=== PATIENT | female | born 1975 | race Caucasian/White ===

== ENCOUNTER 2017-02-03 08:44 | Emergency (ER) | payer OTHER ==
[2017-02-03 08:50] VITALS: BP 96/56; PULSE 79; RESP 18; TEMP 98.7; O2SAT 99
--- NOTE | 2017-02-03 09:39 | ED PDOC ---
HPI: Female Pain Time Seen by Provider: 02/03/17 09:06 Chief Complaint (Nursing): Back Pain History Per: Patient History/Exam Limitations: no limitations Onset/Duration Of Symptoms: Days (2) Current Symptoms Are (Timing): Still Present Severity: Moderate Pain Scale Rating Of: 4 Quality Of Discomfort: Dull, Burning Associated Symptoms: Chills, Back Pain. denies: Fever, Nausea, Vomiting, Diarrhea, Loss Of Appetite, Constipation, Urinary Symptoms Alleviating Factors: None Additional History Per: Patient Additional Complaint(s): Pt co burning with urination for 2 days. Reports suprapubic pain. Reports lower back pain. No fever or vomiting. Has hx of UTIs. Abnormal Vaginal Bleeding: No Past Medical History Reviewed: Historical Data, Nursing Documentation, Vital Signs Vital Signs: Last Vital Signs Temp 98.7 F 02/03/17 08:50 Pulse 79 02/03/17 08:50 Resp 18 02/03/17 08:50 BP 96/56 L 02/03/17 08:50 Pulse Ox 99 02/03/17 08:50 - Medical History PMH: Gastritis - Surgical History Surgical History: Appendectomy (w/ peritonitis), (2) - Family History Family History: States: Unknown Family Hx - Immunization History Hx Tetanus Toxoid Vaccination: No Hx Influenza Vaccination: No Hx Pneumococcal Vaccination: No - Home Medications Home Medications: Ambulatory Orders Medication Instructions Recorded Famotidine [Pepcid] 20 mg PO Q12 #20 tab 05/29/16 - Allergies Allergies/Adverse Reactions: Allergies Allergy/AdvReac Type Severity Reaction Status Date / Time No Known Allergies Allergy Verified 02/03/17 08:54 Review of Systems ROS Statement: Except As Marked, All Systems Reviewed And Found Negative Constitutional: Negative for: Fever Genitourinary Female: Positive for: Dysuria Musculoskeletal: Positive for: Back Pain Physical Exam - Reviewed Nursing Documentation Reviewed: Yes Vital Signs Reviewed: Yes - Physical Exam Appears: Positive for: Well, Non-toxic, No Acute Distress Head Exam: Positive for: ATRAUMATIC, NORMAL INSPECTION Skin: Positive for: Warm, Dry Cardiovascular/Chest: Positive for: Regular Rate, Rhythm Respiratory: Negative for: Respiratory Distress Gastrointestinal/Abdominal: Positive for: Soft. Negative for: Tenderness Back: Negative for: L CVA Tenderness, R CVA Tenderness Neurologic/Psych: Positive for: Alert, Oriented - Laboratory Results Urine POC: Negative Urine dip results: Positive for: Leukocyte Esterase, Nitrate. Negative for: Blood, Ketones - ECG O2 Sat by Pulse Oximetry: 99 Medical Decision Making Medical Decision Making: IMpression Dysuria Diff include UTI uncomplicated vs complicated Plan Urine dip pyridium PO motrin PO Urine cx Disposition - Clinical Impression Clinical Impression: UTI (urinary tract infection) - Patient ED Disposition Is Patient to be Admitted: No Doctor Will See Patient In The: Office Counseled Patient/Family Regarding: Studies Performed, Diagnosis, Need For Followup - Disposition Referrals: [facility] [Outside] Disposition: Routine/Home Disposition Time: 09:39 Condition: GOOD Additional Instructions: Take medications as instructed. Follow up with your PCP in 2-3 days. Instructions: Urinary Tract Infection in Women (ED) Print Language: FAROESE
== END 2017-02-03 10:10 | disposition home or self-care (01) ==
LOC: H.ER 08:44
DX: N39.0 Urinary tract infection, site not specified (principal)

== ENCOUNTER 2017-03-08 10:55 | Inpatient (IN) | payer MEDICAID, SELFPAY ==
[2017-03-08 11:10] VITALS: BMI 32.1
--- NOTE | 2017-03-08 11:50 | ED PDOC ---
HPI: SOB/CHF/COPD Time Seen by Provider: 03/08/17 11:23 Chief Complaint (Nursing): Shortness Of Breath Chief Complaint (Provider): shortness of breath History Per: Patient History/Exam Limitations: no limitations Onset/Duration Of Symptoms: Days (x 3) Additional Complaint(s): Shae Bronson is a 41 year old female, with no previous medical history, who presents to the ED with complaints of shortness of breath associated with cough , generalized weakness and left eye twitching onoging for 3 days. She denies any chest pain, fever or chills. PMD: Fermin Townsend MD Past Medical History Reviewed: Historical Data, Nursing Documentation, Vital Signs Vital Signs: Last Vital Signs Temp 98.7 F 03/09/17 15:40 Pulse 75 03/09/17 15:40 Resp 20 03/09/17 15:40 BP 90/54 L 03/09/17 15:40 Pulse Ox 98 03/09/17 15:40 - Medical History PMH: Gastritis - Surgical History Surgical History: Appendectomy (w/ peritonitis), (2) - Family History Family History: States: Unknown Family Hx - Immunization History Hx Tetanus Toxoid Vaccination: No Hx Influenza Vaccination: No Hx Pneumococcal Vaccination: No - Home Medications Home Medications: Ambulatory Orders Medication Instructions Recorded Omeprazole [Omeprazole] 40 mg PO DAILY 03/08/17 - Allergies Allergies/Adverse Reactions: Allergies Allergy/AdvReac Type Severity Reaction Status Date / Time No Known Allergies Allergy Verified 03/08/17 17:28 Review of Systems ROS Statement: Except As Marked, All Systems Reviewed And Found Negative Constitutional: Positive for: Weakness (generalized). Negative for: Fever, Chills Cardiovascular: Negative for: Chest Pain Respiratory: Positive for: Cough, Shortness of Breath Physical Exam - Reviewed Nursing Documentation Reviewed: Yes Vital Signs Reviewed: Yes - Physical Exam Appears: Positive for: Well, Non-toxic, No Acute Distress Head Exam: Positive for: ATRAUMATIC, NORMAL INSPECTION, NORMOCEPHALIC Skin: Positive for: Normal Color, Warm, DRY Eye Exam: Positive for: EOMI, Normal appearance, PERRL ENT: Positive for: Normal ENT Inspection Neck: Positive for: Normal, Painless ROM Cardiovascular/Chest: Positive for: Irregularly Irregular Respiratory: Positive for: CNT, Normal Breath Sounds Gastrointestinal/Abdominal: Positive for: Normal Exam, Bowel Sounds, Soft Back: Positive for: Normal Inspection Extremity: Positive for: Normal ROM Neurologic/Psych: Positive for: Alert, basic combatant swimmer II-XII (intact), Oriented. Negative for: Motor/Sensory Deficits, Facial Droop - Laboratory Results Result Diagrams: 03/09/17 07:00 03/09/17 07:00 - ECG Interpretation Of ECG: Atrial bigeminy. O2 Sat by Pulse Oximetry: 98 (RA) Pulse Ox Interpretation: Normal - Radiology X-Ray: Read By Radiologist X-Ray Interpretation: No Acute Disease - Physician Consult Information Time Consulting Physican Contacted: 15:10 Physician Contacted: [place] Newman Outcome Of Conversation: Recommends TSH, UDS, alcohol level, Mg 2 g, will evaluate patient. Medical Decision Making Medical Decision Making: Initial Impression: Generalized Weakness Initial Plan: * EKG * magnesium * troponin I * urine * labs * D-dimer * PTT * PT * CXR * urinalysis * reevaluation Scribe Attestation: Documented by Niurka Cardenas, acting as a scribe for Niurka Wu MD. Provider Scribe Attestation: All medical record entries made by the Scribe were at my direction and personally dictated by me. I have reviewed the chart and agree that the record accurately reflects my personal performance of the history, physical exam, medical decision making, and the department course for this patient. I have also personally directed, reviewed, and agree with the discharge instructions and disposition. Disposition - Clinical Impression Clinical Impression: Atrial bigeminy - Patient ED Disposition Is Patient to be Admitted: Yes - Disposition Disposition Time: 15:46 Condition: STABLE - Pt Status Changed To: Hospital Disposition Of: Inpatient - Admit Certification Admit to Inpatient:: After my assessment, the patient will require hospitalization for at least two midnights. This is because of the severity of symptoms shown, intensity of services needed, and/or the medical risk in this patient being treated as an outpatient. - POA Present On Arrival: None
[2017-03-08 12:16] LABS: RBC URINE 2 /hpf (0-3); URINE BILIRUBIN NEGATIVE (NEGATIVE); URINE BLOOD NEGATIVE (NEGATIVE); URINE COLOR YELLOW (YELLOW); URINE GLUCOSE (UA) NEG (Normal); URINE KETONE NEGATIVE (NEGATIVE); URINE LEUKOCYTE ESTERASE NEG Leu/uL (Negative); URINE PROTEIN NEGATIVE (NEGATIVE); URINE UROBILINOGEN 0.2-1.0 mg/dL (0.2-1.0)
[2017-03-08 12:19] LABS: BASO % 0.8 % (0.0-2.0); EOS # 0.1 K/uL (0.0-0.7); EOS % 2.2 % (0.0-4.0); HEMATOCRIT 33.8 % (34.0-47.0); LYMPH # 2.4 K/uL (1.0-4.3); MEAN CELL VOLUME 85.3 fl (81.0-99.0); MEAN CORPUSCULAR HEMOGLOBIN 28.9 pg (27.0-31.0); MEAN CORPUSCULAR HGB CONC 33.9 g/dL (33.0-37.0); MEAN PLATELET VOLUME 7.5 fl (7.2-11.7); MONO # 0.7 K/uL (0.0-0.8); MONO % 11.9 % (0.0-10.0); NEUT # 2.9 K/uL (1.8-7.0); NEUT % 47.1 % (50.0-75.0); NRBC % 0.1 % (0.0-0.0); RED CELL DISTRIBUTION WIDTH 14.5 % (11.5-14.5); WHITE BLOOD COUNT 6.2 K/uL (4.8-10.8)
[2017-03-08 12:24] LABS: ALB/GLOB RATIO 1.2 (1.0-2.1); ALKALINE PHOSPHATASE 77 U/L (38-126); ALT/SGPT 180 U/L (9-52); AST/SGOT 128 U/L (14-36); BILIRUBIN,TOTAL 0.5 mg/dl (0.2-1.3); BLOOD UREA NITROGEN 11 mg/dl (7-17); CALCIUM 9.2 mg/dL (8.4-10.2); CARBON DIOXIDE 26 mmol/L (22-30); CHLORIDE 106 mmol/L (98-107); GFR AFRICAN-AMERICAN > 60; GLUCOSE,RANDOM 89 mg/dL (65-105); MAGNESIUM 1.9 MG/DL (1.6-2.3); POTASSIUM 3.9 MMOL/L (3.6-5.0); SODIUM 140 mmol/l (132-148); TOTAL PROTEIN 7.5 G/DL (6.3-8.2)
[2017-03-08 12:42] LABS: PARTIAL THROMBOPLASTIN TIME 27.8 Seconds (25.6-37.1)
--- NOTE | 2017-03-08 14:17 | RAD ---
HISTORY: SOB COMPARISON: No prior. FINDINGS: LUNGS: No active pulmonary disease. PLEURA: No significant pleural effusion identified, no pneumothorax apparent. CARDIOVASCULAR: Normal. OSSEOUS STRUCTURES: No significant abnormalities. VISUALIZED UPPER ABDOMEN: Normal. OTHER FINDINGS: None. IMPRESSION: No active disease.
[2017-03-08] MEDS ORDERED: Magnesium Sulfate 2 gm/50 ml 2 GM/50 ML BAG IVPB STA (15:33)
--- NOTE | 2017-03-08 15:55 | CP.PCM.CON ---
Past Patient History - Infectious Disease Hx of Infectious Diseases: None - Past Social History Smoking Status: Never Smoked - GASTROINTESTINAL Hx Gastritis: Yes - PSYCHIATRIC Hx Substance Use: No - SURGICAL HISTORY Hx Appendectomy: Yes (w/ peritonitis) - ANESTHESIA Hx Anesthesia: Yes Hx Anesthesia Reactions: No Meds Allergies/Adverse Reactions: Allergies Allergy/AdvReac Type Severity Reaction Status Date / Time No Known Allergies Allergy Verified 02/03/17 08:54 - Medications Medications: Current Medications Magnesium Sulfate 2 gm/ Sodium (Chloride) 104 mls @ 104 mls/hr IVPB STAT STA PRN Reason: 2 GM/HR Stop: 03/08/17 16:32 Results - Vital Signs Recent Vital Signs: Last Vital Signs Temp 98.1 F 03/08/17 11:21 Pulse 76 03/08/17 11:21 Resp 20 03/08/17 12:08 BP 104/49 L 03/08/17 11:21 Pulse Ox 98 03/08/17 12:08 - Labs Result Diagrams: 03/08/17 12:00 03/08/17 12:00 Labs: Laboratory Results - last 24 hr 03/08/17 03/08/17 03/08/17 12:00 12:00 12:00 WBC 6.2 RBC 3.97 Hgb 11.5 L Hct 33.8 L MCV 85.3 D MCH 28.9 MCHC 33.9 RDW 14.5 Plt Count 308 MPV 7.5 Neut % (Auto) 47.1 L Lymph % (Auto) 38.0 [place] % (Auto) 11.9 H Eos % (Auto) 2.2 Baso % (Auto) 0.8 Neut # 2.9 Lymph # 2.4 [place] # 0.7 Eos # 0.1 Baso # 0.0 PT 10.3 INR 0.9 APTT 27.8 D-Dimer, Quantitative 81 Sodium 140 Potassium 3.9 Chloride 106 Carbon Dioxide 26 Anion Gap 11 BUN 11 Creatinine 0.6 L Est GFR ( Amer) > 60 Est GFR (Non-Af Amer) > 60 Random Glucose 89 Calcium 9.2 Magnesium 1.9 Total Bilirubin 0.5 AST 128 H D ALT 180 H D Alkaline Phosphatase 77 Troponin I < 0.0120 Total Protein 7.5 Albumin 4.0 Globulin 3.5 Albumin/Globulin Ratio 1.2 Urine Color Urine Clarity Urine pH Ur Specific [place] Urine Protein Urine Glucose (UA) Urine Ketones Urine Blood Urine Nitrate Urine Bilirubin Urine Urobilinogen Ur Leukocyte Esterase Urine RBC (Auto) Ur Squamous Epith Cells 03/08/17 12:00 WBC RBC Hgb Hct MCV MCH MCHC RDW Plt Count MPV Neut % (Auto) Lymph % (Auto) [place] % (Auto) Eos % (Auto) Baso % (Auto) Neut # Lymph # [place] # Eos # Baso # PT INR APTT D-Dimer, Quantitative Sodium Potassium Chloride Carbon Dioxide Anion Gap BUN Creatinine Est GFR ( Amer) Est GFR (Non-Af Amer) Random Glucose Calcium Magnesium Total Bilirubin AST ALT Alkaline Phosphatase Troponin I Total Protein Albumin Globulin Albumin/Globulin Ratio Urine Color Yellow Urine Clarity Slighty-cloudy Urine pH 6.0 Ur Specific [place] 1.009 Urine Protein Negative Urine Glucose (UA) Neg Urine Ketones Negative Urine Blood Negative Urine Nitrate Negative Urine Bilirubin Negative Urine Urobilinogen 0.2-1.0 Ur Leukocyte Esterase Neg Urine RBC (Auto) 2 Ur Squamous Epith Cells 6 H Assessment & Plan (1) SOB (shortness of breath) Status: Acute (2) Atrial bigeminy Status: Acute - Assessment and Plan (Free Text) Plan: check tox screen tfts give 2gm mag needs echo consider d dimer consider lyme titer
[2017-03-08 16:25] LABS: ABG ALLEN TEST YES; ARTERIAL BLOOD GAS HCO3 26.6 mmol/L (21-28); ARTERIAL BLOOD GAS MODE RA; ARTERIAL BLOOD GAS O2 CAPACITY 17.2 mL/dL (16-24); ARTERIAL BLOOD GAS PH 7.56 (7.35-7.45); ARTERIAL BLOOD GAS PO2 112 mm/Hg (80-100); ARTERIAL BLOOD HGB O2 SAT 96.5 % (95.0-98.0); CARBOXYHEMOGLOBIN 1.1 % (0.5-1.5); HHB 0.9 % (0.0-5.0); METHEMOGLOBIN 1.5 % (0.0-3.0)
--- NOTE | 2017-03-08 16:29 | CP.PCM.HP ---
History of Present Illness - History of Present Illness History of Present Illness: 41 yr old F with PMHx of GERD, chronic dyspepsia, chronic elevated LFT's, Fatty Liver, Hypertriglyceridemia and pre-diabetes presented to ED with complaint of worsening SOB at rest x 3 days. Patient reports associated non-productive cough , generalized weakness, left eye twitching and intermittent dizziness. SOB is exacerbated by talking and exertion. Denies syncope, chest pain, visual changes , recent travel, LE edema or sick contacts at home. Patient says she recently has had seasonal allergy symptoms (post nasal drip, stuffy nose) but otherwise no current or PMHx of respiratory or cardiac disease, no changes in routine/diet /environment. States she has no idea why she has become SOB. PMD: at [facility] (last visit 09/27/16), next appt scheduled for 03/19/17 Specialists: Dr. 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 Newman: pt has Atrial bigeminy, get echo, lyme titer, TFT's , Utox screen, give 2gm Mag, D-dimer Present on Admission - Present on Admission Any Indicators Present on Admission: No History of DVT/PE: No History of Uncontrolled Diabetes: No Urinary Catheter: No Decubitus Ulcer Present: No Review of Systems - Review of Systems All systems: reviewed and no additional remarkable complaints except (except for what is mentioned in the HPI) Past Patient History - Infectious Disease Hx of Infectious Diseases: None - Past Social History Smoking Status: Never Smoked - GASTROINTESTINAL Hx Gastritis: Yes - PSYCHIATRIC Hx Substance Use: No - SURGICAL HISTORY Hx Appendectomy: Yes (w/ peritonitis) - ANESTHESIA Hx Anesthesia: Yes Hx Anesthesia Reactions: No Meds Allergies/Adverse Reactions: Allergies Allergy/AdvReac Type Severity Reaction Status Date / Time No Known Allergies Allergy Verified 03/08/17 17:28 Physical Exam - Constitutional Appears: Non-toxic - Head Exam Head Exam: ATRAUMATIC, NORMOCEPHALIC - Eye Exam Eye Exam: EOMI, PERRL - ENT Exam ENT Exam: Mucous Membranes Moist. absent: Normal Oropharynx (pharyngeal erythema) - Neck Exam Neck exam: Positive for: Full Rom. Negative for: Lymphadenopathy - Respiratory Exam Respiratory Exam: Decreased Breath Sounds, Prolonged Expiratory Phase, Rales ( mild in bilateral lower lobes), Respiratory Distress (mild, taking breaks to breath in between converstion) - Cardiovascular Exam Cardiovascular Exam: REGULAR RHYTHM, +S1, +S2. absent: Gallop, Systolic Murmur - GI/Abdominal Exam GI & Abdominal Exam: Normal Bowel Sounds, Soft. absent: Tenderness - Extremities Exam Extremities exam: Positive for: full ROM. Negative for: calf tenderness, pedal edema - Back Exam Back exam: absent: CVA tenderness (L), CVA tenderness (R) - Neurological Exam Neurological exam: Alert, CN II-XII Intact, Oriented x3 - Psychiatric Exam Psychiatric exam: Flat Affect, Normal Mood - Skin Skin Exam: Dry, Intact, Warm Results - Vital Signs Recent Vital Signs: Last Vital Signs Temp 98.1 F 03/08/17 11:21 Pulse 76 03/08/17 11:21 Resp 20 03/08/17 12:08 BP 104/49 L 03/08/17 11:21 Pulse Ox 98 03/08/17 12:08 - Labs Result Diagrams: 03/08/17 12:00 03/08/17 12:00 Labs: Laboratory Results - last 24 hr 03/08/17 16:12 pCO2 26 L pO2 112 H HCO3 26.6 ABG pH 7.56 H ABG Total CO2 24.1 ABG O2 Saturation 99.1 H ABG O2 Content 17.0 ABG Base Excess 2.1 ABG Hemoglobin 12.4 ABG Carboxyhemoglobin 1.1 POC ABG HHb (Measured) 0.9 ABG Methemoglobin 1.5 ABG O2 Capacity 17.2 [place] Test Yes A-a O2 Difference 5.0 Hgb O2 Saturation 96.5 Vent Mode Ra FiO2 21.0 Assessment & Plan - Assessment and Plan (Free Text) Assessment: 41 yr old F admitted for worsening SOB and generalized weakness x 3 days with PMHx of GERD, chronic dyspepsia, chronic elevated LFT's, Fatty Liver, Hypertriglyceridemia and pre-diabetes. SOB and generalized weakness -acute, worsening x 3 days -ABG : Acute uncompensated primary respiratory alkalosis w/ metabolic alkalosis -TSH wnl, Utox neg, D-dimer wnl -Admit to telemetry for further management -f/u Echo, lyme titer, B12, folate, vit D, urine lytes -supplemental O2 via nasal cannula PRN to keep O2 sat >92% Atrial Bigeminy -2gm Mag given in ED -keep K+ between 4-5 -keep Mag >2 -Cardiology on consult: Dr. Newman: will follow recommendations -KCl 20Meq PO BID -f/u Echo, lyme titer, B12, folate, vit D, urine lytes DVT/GI prophylaxis -Lovenox 40 mg SC QD - Date & Time Date: 03/09/17 Time: 16:35
[2017-03-08] MEDS ORDERED: Magnesium Sulfate 2 gm/50 ml 2 GM/50 ML BAG ONE (16:40)
[2017-03-08 16:54] LABS: ALCOHOL SERUM < 10 mg/dl (0-10)
[2017-03-08 17:24] LABS: THYROID STIMULATING HORMONE 1.46 mIU/ML (0.46-4.68)
[2017-03-08] MEDS: Potassium Chloride 20 mEq ER Tab PO SCH (21:20)
[2017-03-09 08:26] LABS: HEMATOCRIT 34.6 % (34.0-47.0); MEAN CELL VOLUME 85.9 fl (81.0-99.0); MEAN CORPUSCULAR HEMOGLOBIN 28.9 pg (27.0-31.0); MEAN CORPUSCULAR HGB CONC 33.7 g/dL (33.0-37.0); RED CELL DISTRIBUTION WIDTH 14.4 % (11.5-14.5); WHITE BLOOD COUNT 6.4 K/uL (4.8-10.8)
[2017-03-09 08:33] LABS: BLOOD UREA NITROGEN 13 mg/dl (7-17); CALCIUM 8.5 mg/dL (8.4-10.2); CARBON DIOXIDE 25 mmol/L (22-30); CHLORIDE 106 mmol/L (98-107); CHOLESTEROL 190 mg/dL (0-199); GFR AFRICAN-AMERICAN > 60; GLUCOSE,RANDOM 108 mg/dL (65-105); SODIUM 138 mmol/l (132-148)
[2017-03-09 08:35] LABS: POTASSIUM 3.9 MMOL/L (3.6-5.0)
[2017-03-09] MEDS: Potassium Chloride 20 mEq ER Tab PO SCH ×2 (09:57→17:43)
[2017-03-09] MEDS: Enoxaparin 40 mg Syringe SC SCH (09:58)
--- NOTE | 2017-03-09 13:15 | CARD ---
APPROVED REPORT EKG Measurement Heart [id number] <Conclusion> Sinus rhythm with premature supraventricular complexes Otherwise normal ECG
--- NOTE | 2017-03-09 13:54 | CP.PCM.CON ---
Past Patient History - Infectious Disease Hx of Infectious Diseases: None - Past Medical History & Family History Past Medical History?: Yes - Past Social History Smoking Status: Never Smoked - CARDIAC Hx Cardiac Disorders: No - PULMONARY Hx Respiratory Disorders: No - NEUROLOGICAL Hx Neurological Disorder: No - HEENT Hx HEENT Problems: No - RENAL Hx Chronic Kidney Disease: No - ENDOCRINE/METABOLIC Hx Endocrine Disorders: No - HEMATOLOGICAL/ONCOLOGICAL Hx Blood Disorders: No Hx AIDS: No Hx Human Immunodeficiency Virus (HIV): No - INTEGUMENTARY Hx Dermatological Problems: No - MUSCULOSKELETAL/RHEUMATOLOGICAL Hx Musculoskeletal Disorders: No Hx Falls: No - GASTROINTESTINAL Hx Gastritis: Yes - GENITOURINARY/GYNECOLOGICAL Hx Genitourinary Disorders: No - PSYCHIATRIC Hx Substance Use: No - SURGICAL HISTORY Hx Appendectomy: Yes (w/ peritonitis) - ANESTHESIA Hx Anesthesia: Yes Hx Anesthesia Reactions: No Meds Allergies/Adverse Reactions: Allergies Allergy/AdvReac Type Severity Reaction Status Date / Time No Known Allergies Allergy Verified 03/08/17 17:28 - Medications Medications: Current Medications Acetaminophen (Tylenol 325mg Tab) 650 mg PO Q6 PRN PRN Reason: Pain, Mild (1-3) Enoxaparin Sodium (Lovenox) 40 mg SC DAILY ELVIA PRN Reason: Protocol Last Admin: 03/09/17 09:58 Dose: 40 mg Potassium Chloride (K-Dur 20 Meq Er Tab) 20 meq PO BID ELVIA Last Admin: 03/09/17 09:57 Dose: 20 meq Results - Vital Signs Recent Vital Signs: Last Vital Signs Temp 97.9 F 03/09/17 12:00 Pulse 75 03/09/17 12:00 Resp 18 03/09/17 12:00 BP 96/61 L 03/09/17 12:00 Pulse Ox 98 03/09/17 12:00 - Labs Result Diagrams: 03/09/17 07:00 03/09/17 07:00 Labs: Laboratory Results - last 24 hr 03/08/17 03/08/17 03/08/17 16:12 16:35 16:35 WBC RBC Hgb Hct MCV MCH MCHC RDW Plt Count ESR pCO2 26 L pO2 112 H HCO3 26.6 ABG pH 7.56 H ABG Total CO2 24.1 ABG O2 Saturation 99.1 H ABG O2 Content 17.0 ABG Base Excess 2.1 ABG Hemoglobin 12.4 ABG Carboxyhemoglobin 1.1 POC ABG HHb (Measured) 0.9 ABG Methemoglobin 1.5 ABG O2 Capacity 17.2 [place] Test Yes A-a O2 Difference 5.0 Hgb O2 Saturation 96.5 Vent Mode Ra FiO2 21.0 Sodium Potassium Chloride Carbon Dioxide Anion Gap BUN Creatinine Est GFR ( Amer) Est GFR (Non-Af Amer) Random Glucose Calcium Magnesium Triglycerides Cholesterol LDL Cholesterol Direct HDL Cholesterol Vitamin B12 TSH 3rd Generation 1.46 Urine Opiates Screen Negative Urine Methadone Screen Negative Ur Barbiturates Screen Negative Ur Phencyclidine Scrn Negative Ur Amphetamines Screen Negative U Benzodiazepines Scrn Negative U Oth Cocaine Metabols Negative U Cannabinoids Screen Negative Alcohol, Quantitative < 10 03/08/17 03/09/17 03/09/17 17:03 07:00 07:00 WBC 6.4 RBC 4.03 Hgb 11.7 L Hct 34.6 MCV 85.9 MCH 28.9 MCHC 33.7 RDW 14.4 Plt Count 305 ESR 32 H pCO2 pO2 HCO3 ABG pH ABG Total CO2 ABG O2 Saturation ABG O2 Content ABG Base Excess ABG Hemoglobin ABG Carboxyhemoglobin POC ABG HHb (Measured) ABG Methemoglobin ABG O2 Capacity [place] Test A-a O2 Difference Hgb O2 Saturation Vent Mode FiO2 Sodium 138 Potassium 3.9 Chloride 106 Carbon Dioxide 25 Anion Gap 11 BUN 13 Creatinine 0.6 L Est GFR ( Amer) > 60 Est GFR (Non-Af Amer) > 60 Random Glucose 108 H Calcium 8.5 Magnesium Triglycerides 203 H D Cholesterol 190 LDL Cholesterol Direct 116 HDL Cholesterol 49 Vitamin B12 312 TSH 3rd Generation Urine Opiates Screen Urine Methadone Screen Ur Barbiturates Screen Ur Phencyclidine Scrn Ur Amphetamines Screen U Benzodiazepines Scrn U Oth Cocaine Metabols U Cannabinoids Screen Alcohol, Quantitative 03/09/17 11:00 WBC RBC Hgb Hct MCV MCH MCHC RDW Plt Count ESR pCO2 pO2 HCO3 ABG pH ABG Total CO2 ABG O2 Saturation ABG O2 Content ABG Base Excess ABG Hemoglobin ABG Carboxyhemoglobin POC ABG HHb (Measured) ABG Methemoglobin ABG O2 Capacity [place] Test A-a O2 Difference Hgb O2 Saturation Vent Mode FiO2 Sodium Potassium Chloride Carbon Dioxide Anion Gap BUN Creatinine Est GFR ( Amer) Est GFR (Non-Af Amer) Random Glucose Calcium Magnesium 2.1 Triglycerides Cholesterol LDL Cholesterol Direct HDL Cholesterol Vitamin B12 TSH 3rd Generation Urine Opiates Screen Urine Methadone Screen Ur Barbiturates Screen Ur Phencyclidine Scrn Ur Amphetamines Screen U Benzodiazepines Scrn U Oth Cocaine Metabols U Cannabinoids Screen Alcohol, Quantitative Assessment & Plan (1) SOB (shortness of breath) Status: Acute (2) Atrial bigeminy Status: Acute
[2017-03-09] MEDS ORDERED: guaiFENesin DM 100 mg-10 mg/5 ml UD PO PRN (14:05)
[2017-03-09] MEDS ORDERED: guaiFENesin DM 200 mg-20 mg/10 ml UD PO PRN (14:15)
--- NOTE | 2017-03-09 15:31 | CP.PCM.PN ---
Subjective - Date & Time of Evaluation Date of Evaluation: 03/09/17 Time of Evaluation: 08:45 - Subjective Subjective: Pt was seen and evaluated at bedside, appeared comfortable and not in distress. Patient stated that her shortness of breath improved since arrival to ED and time of admission, but that she still gets tired when she walks. She is aware that she is to get echocardiogram done as part of the workup prior to discharge. Denied any new complaints, chest pain, worsening SOB, abdominal pain , calf/leg pain/swelling. Objective - Vital Signs/Intake and Output Vital Signs (last 24 hours): Temp Pulse Resp BP Pulse Ox 97.9 F 75 18 96/61 L 98 03/09/17 12:00 03/09/17 12:00 03/09/17 12:00 03/09/17 12:00 03/09/17 12:00 - Medications Medications: Current Medications Acetaminophen (Tylenol 325mg Tab) 650 mg PO Q6 PRN PRN Reason: Pain, Mild (1-3) Enoxaparin Sodium (Lovenox) 40 mg SC DAILY ELVIA PRN Reason: Protocol Last Admin: 03/09/17 09:58 Dose: 40 mg Guaifenesin/Dextromethorphan (Robitussin Dm) 10 ml PO Q6 PRN PRN Reason: Cough Home Med (Omeprazole [Omeprazole]) 40 mg PO DAILY ELVIA Pantoprazole Sodium (Protonix Ec Tab) 40 mg PO DAILY ELVIA Potassium Chloride (K-Dur 20 Meq Er Tab) 20 meq PO BID ELVIA Last Admin: 03/09/17 09:57 Dose: 20 meq - Labs Labs: 03/09/17 07:00 03/09/17 07:00 PT 10.3 Seconds (9.8-13.1) 03/08/17 12:00 INR 0.9 (0.9-1.2) 03/08/17 12:00 APTT 27.8 Seconds (25.6-37.1) 03/08/17 12:00 - Constitutional Appears: Non-toxic - Head Exam Head Exam: ATRAUMATIC, NORMOCEPHALIC - Eye Exam Eye Exam: EOMI, Normal appearance - ENT Exam ENT Exam: Mucous Membranes Moist - Respiratory Exam Respiratory Exam: Decreased Breath Sounds Additional comments: improved, does not need to take breaks during conversation as she did last night - Cardiovascular Exam Cardiovascular Exam: +S1, +S2 - GI/Abdominal Exam GI & Abdominal Exam: Soft, Normal Bowel Sounds - Extremities Exam Extremities Exam: Normal Capillary Refill. absent: Calf Tenderness, Pedal Edema , Tenderness - Neurological Exam Neurological Exam: Alert, Awake, Oriented x3 - Psychiatric Exam Psychiatric exam: Normal Mood - Skin Skin Exam: Dry, Intact, Normal Color, Warm Assessment and Plan - Assessment and Plan (Free Text) Assessment: 41 yo F with PMH of GERD, chronic dyspepsia, chronic elevated LFTs, fatty liver , hypertriglyceridemia and pre-diabetes admitted for worsening SOB and generalized weakness for 3 days. Symptoms have improved, pt is awaiting echocardiogram. Plan: 1) Shortness of breath and generalized weakness -Improved -ABG in ED: Acute uncompensated primary respiratory alkalosis w/ metabolic alkalosis -TSH WNL, Utox neg, D-dimer WNL, B12 WNL -F/u echo, lyme titer, folate, vit D, urine lytes 2) Atrial Bigeminy -NSR observed today on tele monitor -Atrial bigeminy observed yesterday evening -Cardiology consult appreciated -2gm magnesium given in ED -keep K+ between 4-5 -keep magnesium >2 -Magnesium today 2.1 -Echo -KCl 20Meq PO BID -F/u Echo, lyme titer, B12, folate, vit D, urine lytes 3) DVT prophylaxis -Lovenox 40 mg SC QD
[2017-03-09 17:06] LABS: FOLATE > 20.0 ng/mL
--- NOTE | 2017-03-09 22:49 | CP.PCM.PN ---
Subjective - Date & Time of Evaluation Date of Evaluation: 03/09/17 Time of Evaluation: 14:00 - Subjective Subjective: CONT DYSPNEA PACS STOPPED THIS AM ON TELE. MAY BE SECONDARY TO KCL. Objective - Vital Signs/Intake and Output Vital Signs (last 24 hours): Temp Pulse Resp BP Pulse Ox 98.7 F 63 20 100/52 L 99 03/09/17 19:09 03/09/17 21:00 03/09/17 19:09 03/09/17 19:09 03/09/17 19:09 - Medications Medications: Current Medications Acetaminophen (Tylenol 325mg Tab) 650 mg PO Q6 PRN PRN Reason: Pain, Mild (1-3) Enoxaparin Sodium (Lovenox) 40 mg SC DAILY [facility] PRN Reason: Protocol Last Admin: 03/09/17 09:58 Dose: 40 mg Guaifenesin/Dextromethorphan (Robitussin Dm) 10 ml PO Q6 PRN PRN Reason: Cough Last Admin: 03/09/17 17:45 Dose: 10 ml Home Med (Omeprazole [Omeprazole]) 40 mg PO DAILY [facility] Pantoprazole Sodium (Protonix Ec Tab) 40 mg PO DAILY [facility] Potassium Chloride (K-Dur 20 Meq Er Tab) 20 meq PO BID ELVIA Last Admin: 03/09/17 17:43 Dose: 20 meq - Labs Labs: 03/09/17 07:00 03/09/17 07:00 PT 10.3 Seconds (9.8-13.1) 03/08/17 12:00 INR 0.9 (0.9-1.2) 03/08/17 12:00 APTT 27.8 Seconds (25.6-37.1) 03/08/17 12:00 Assessment and Plan (1) SOB (shortness of breath) Status: Acute (2) Atrial bigeminy Status: Acute
--- NOTE | 2017-03-10 06:34 | CARD ---
APPROVED REPORT EKG Measurement Heart [id number] <Conclusion> Sinus rhythm with premature atrial contractions Nonspecific ST abnormality Abnormal ECG
[2017-03-10 08:15] VITALS: RESP 20
[2017-03-10] MEDS ORDERED: Pantoprazole 40 mg EC Tab PO SCH (09:00)
[2017-03-10] MEDS: Enoxaparin 40 mg Syringe SC SCH (09:29)
[2017-03-10] MEDS: Potassium Chloride 20 mEq ER Tab PO SCH ×2 (09:29→16:15)
[2017-03-10 12:31] VITALS: TEMP 98.1
--- NOTE | 2017-03-10 15:24 | CP.PCM.PN ---
Subjective - Date & Time of Evaluation Date of Evaluation: 03/10/17 Time of Evaluation: 07:50 - Subjective Subjective: Pt was seen and evaluated at bedside, was seen sleeping comfortably in bed earlier in the morning, later was seen eating lunch. Reports that sob has not changed from yesterday: has improved since arrival to ED and time of admission, but that she still has mild dyspnea when she walks. Pt had echo done today; results pending. Denied any new complaints, chest pain, worsening SOB, abdominal pain, calf/leg pain/swelling. PFTs can be done as outpt via follow up with PCP. Objective - Vital Signs/Intake and Output Vital Signs (last 24 hours): Temp Pulse Resp BP Pulse Ox 98.1 F 60 20 100/53 L 96 03/10/17 12:00 03/10/17 12:00 03/10/17 12:00 03/10/17 12:00 03/10/17 12:00 - Medications Medications: Current Medications Acetaminophen (Tylenol 325mg Tab) 650 mg PO Q6 PRN PRN Reason: Pain, Mild (1-3) Enoxaparin Sodium (Lovenox) 40 mg SC DAILY ELVIA PRN Reason: Protocol Last Admin: 03/10/17 09:29 Dose: 40 mg Guaifenesin/Dextromethorphan (Robitussin Dm) 10 ml PO Q6 PRN PRN Reason: Cough Last Admin: 03/09/17 17:45 Dose: 10 ml Home Med (Omeprazole [Omeprazole]) 40 mg PO DAILY [facility] Pantoprazole Sodium (Protonix Ec Tab) 40 mg PO DAILY ELVIA Last Admin: 03/10/17 09:29 Dose: 40 mg Potassium Chloride (K-Dur 20 Meq Er Tab) 20 meq PO BID ELVIA Last Admin: 03/10/17 09:29 Dose: 20 meq - Labs Labs: 03/09/17 07:00 03/09/17 07:00 PT 10.3 Seconds (9.8-13.1) 03/08/17 12:00 INR 0.9 (0.9-1.2) 03/08/17 12:00 APTT 27.8 Seconds (25.6-37.1) 03/08/17 12:00 - Constitutional Appears: Non-toxic - Head Exam Head Exam: ATRAUMATIC, NORMAL INSPECTION - Eye Exam Eye Exam: EOMI, Normal appearance - ENT Exam ENT Exam: Mucous Membranes Moist - Respiratory Exam Respiratory Exam: Clear to Ausculation Bilateral, NORMAL BREATHING PATTERN - Cardiovascular Exam Cardiovascular Exam: REGULAR RHYTHM, +S1, +S2 - GI/Abdominal Exam GI & Abdominal Exam: Soft, Normal Bowel Sounds - Extremities Exam Extremities Exam: Normal Capillary Refill. absent: Calf Tenderness, Pedal Edema , Tenderness - Back Exam Back Exam: NORMAL INSPECTION - Neurological Exam Neurological Exam: Alert, Awake, Oriented x3 - Psychiatric Exam Psychiatric exam: Normal Mood - Skin Skin Exam: Dry, Intact, Normal Color, Warm Assessment and Plan - Assessment and Plan (Free Text) Assessment: 41 yo F with PMH of GERD, chronic dyspepsia, chronic elevated LFTs, fatty liver , hypertriglyceridemia and pre-diabetes admitted for worsening SOB and generalized weakness for 3 days. Symptoms have improved, pt is awaiting results of echocardiogram. Plan: 1) Shortness of breath and generalized weakness -Improved -TSH WNL, Utox neg, D-dimer WNL, B12 WNL, folate WNL, urine lytes WNL, wait for lyme titer -F/u PFTs as outpt 2) Atrial Bigeminy -NSR observed today on tele monitor -Atrial bigeminy observed the night of admission, but not since then -Cardiology consult appreciated -2gm magnesium given in ED -keep K+ between 4-5 -keep magnesium >2 -Magnesium today 2.1 -Echo done today- pending results -KCl 20Meq PO BID -F/u echo results, lyme titer 3) DVT prophylaxis -Lovenox 40 mg SC QD
[2017-03-10 15:41] VITALS: BP 98/66; PULSE 80; O2SAT 98
--- NOTE | 2017-03-10 18:06 | CP.PCM.DIS ---
Provider - Provider Date of Admission: 03/08/17 15:46 Attending physician: Anel Huntley MD Primary care physician: Dr. Townsend Consults: Cardiology Time Spent in preparation of Discharge (in minutes): 35 Diagnosis - Discharge Diagnosis (1) SOB (shortness of breath) Status: Resolved Hospital Course - Lab Results Lab Results: Most Recent Lab Values WBC 6.4 K/uL (4.8-10.8) 03/09/17 07:00 RBC 4.03 Mil/uL (3.80-5.20) 03/09/17 07:00 Hgb 11.7 g/dL (12.0-16.0) L 03/09/17 07:00 Hct 34.6 % (34.0-47.0) 03/09/17 07:00 MCV 85.9 fl (81.0-99.0) 03/09/17 07:00 MCH 28.9 pg (27.0-31.0) 03/09/17 07:00 MCHC 33.7 g/dL (33.0-37.0) 03/09/17 07:00 RDW 14.4 % (11.5-14.5) 03/09/17 07:00 Plt Count 305 K/uL (130-400) 03/09/17 07:00 MPV 7.5 fl (7.2-11.7) 03/08/17 12:00 Neut % (Auto) 47.1 % (50.0-75.0) L 03/08/17 12:00 Lymph % (Auto) 38.0 % (20.0-40.0) 03/08/17 12:00 [place] % (Auto) 11.9 % (0.0-10.0) H 03/08/17 12:00 Eos % (Auto) 2.2 % (0.0-4.0) 03/08/17 12:00 Baso % (Auto) 0.8 % (0.0-2.0) 03/08/17 12:00 Neut # 2.9 K/uL (1.8-7.0) 03/08/17 12:00 Lymph # 2.4 K/uL (1.0-4.3) 03/08/17 12:00 [place] # 0.7 K/uL (0.0-0.8) 03/08/17 12:00 Eos # 0.1 K/uL (0.0-0.7) 03/08/17 12:00 Baso # 0.0 K/uL (0.0-0.2) 03/08/17 12:00 ESR 32 mm/hr (0-20) H 03/08/17 17:03 PT 10.3 Seconds (9.8-13.1) 03/08/17 12:00 INR 0.9 (0.9-1.2) 03/08/17 12:00 APTT 27.8 Seconds (25.6-37.1) 03/08/17 12:00 D-Dimer, Quantitative 81 ng/mlDDU (0-230) 03/08/17 12:00 pCO2 26 mm/Hg (35-45) L 03/08/17 16:12 pO2 112 mm/Hg (80-100) H 03/08/17 16:12 HCO3 26.6 mmol/L (21-28) 03/08/17 16:12 ABG pH 7.56 (7.35-7.45) H 03/08/17 16:12 ABG Total CO2 24.1 mmol/L (22-28) 03/08/17 16:12 ABG O2 Saturation 99.1 % (95-98) H 03/08/17 16:12 ABG O2 Content 17.0 ML/dL (15-23) 03/08/17 16:12 ABG Base Excess 2.1 mmol/L (-2.0-3.0) 03/08/17 16:12 ABG Hemoglobin 12.4 g/dL (11.7-17.4) 03/08/17 16:12 ABG Carboxyhemoglobin 1.1 % (0.5-1.5) 03/08/17 16:12 POC ABG HHb (Measured) 0.9 % (0.0-5.0) 03/08/17 16:12 ABG Methemoglobin 1.5 % (0.0-3.0) 03/08/17 16:12 ABG O2 Capacity 17.2 mL/dL (16-24) 03/08/17 16:12 [place] Test Yes 03/08/17 16:12 A-a O2 Difference 5.0 mm/Hg 03/08/17 16:12 Hgb O2 Saturation 96.5 % (95.0-98.0) 03/08/17 16:12 Vent Mode Ra 03/08/17 16:12 FiO2 21.0 % 03/08/17 16:12 Sodium 138 mmol/l (132-148) 03/09/17 07:00 Potassium 3.9 MMOL/L (3.6-5.0) 03/09/17 07:00 Chloride 106 mmol/L (98-107) 03/09/17 07:00 Carbon Dioxide 25 mmol/L (22-30) 03/09/17 07:00 Anion Gap 11 (10-20) 03/09/17 07:00 BUN 13 mg/dl (7-17) 03/09/17 07:00 Creatinine 0.6 mg/dL (0.7-1.2) L 03/09/17 07:00 Est GFR ( Amer) > 60 03/09/17 07:00 Est GFR (Non-Af Amer) > 60 03/09/17 07:00 Random Glucose 108 mg/dL (65-105) H 03/09/17 07:00 Hemoglobin A1c 6.0 % (4.2-6.5) 03/09/17 07:00 Calcium 8.5 mg/dL (8.4-10.2) 03/09/17 07:00 Magnesium 2.1 MG/DL (1.6-2.3) 03/09/17 11:00 Total Bilirubin 0.5 mg/dl (0.2-1.3) 03/08/17 12:00 AST 128 U/L (14-36) H D 03/08/17 12:00 ALT 180 U/L (9-52) H D 03/08/17 12:00 Alkaline Phosphatase 77 U/L (38-126) 03/08/17 12:00 Troponin I < 0.0120 ng/mL (0.00-0.120) 03/08/17 12:00 Total Protein 7.5 G/DL (6.3-8.2) 03/08/17 12:00 Albumin 4.0 g/dL (3.5-5.0) 03/08/17 12:00 Globulin 3.5 gm/dL (2.2-3.9) 03/08/17 12:00 Albumin/Globulin Ratio 1.2 (1.0-2.1) 03/08/17 12:00 Triglycerides 203 mg/DL (0-149) H D 03/09/17 07:00 Cholesterol 190 mg/dL (0-199) 03/09/17 07:00 LDL Cholesterol Direct 116 mg/dL (0-129) 03/09/17 07:00 HDL Cholesterol 49 MG/DL (30-70) 03/09/17 07:00 Vitamin B12 312 pg/mL (239-931) 03/09/17 07:00 25-OH Vitamin D Total 16.3 NG/ML (30.0-100.0) L 03/09/17 07:00 Folate > 20.0 ng/mL 03/09/17 07:00 TSH 3rd Generation 1.46 mIU/ML (0.46-4.68) 03/08/17 16:35 Urine Color Yellow (YELLOW) 03/08/17 12:00 Urine Clarity Slighty-cloudy (Clear) 03/08/17 12:00 Urine pH 6.0 (5.0-8.0) 03/08/17 12:00 Ur Specific [place] 1.009 (1.003-1.030) 03/08/17 12:00 Urine Protein Negative mg/dL (NEGATIVE) 03/08/17 12:00 Urine Glucose (UA) Neg mg/dL (Normal) 03/08/17 12:00 Urine Ketones Negative mg/dL (NEGATIVE) 03/08/17 12:00 Urine Blood Negative (NEGATIVE) 03/08/17 12:00 Urine Nitrate Negative (NEGATIVE) 03/08/17 12:00 Urine Bilirubin Negative (NEGATIVE) 03/08/17 12:00 Urine Urobilinogen 0.2-1.0 mg/dL (0.2-1.0) 03/08/17 12:00 Ur Leukocyte Esterase Neg Guerline/uL (Negative) 03/08/17 12:00 Urine RBC (Auto) 2 /hpf (0-3) 03/08/17 12:00 Ur Squamous Epith Cells 6 /hpf (0-5) H 03/08/17 12:00 Ur Random Sodium 91 meq/L 03/09/17 20:11 Ur Random Potassium 45.4 mmol/L 03/09/17 20:11 Urine Opiates Screen Negative (NEGATIVE) 03/08/17 16:35 Urine Methadone Screen Negative (NEGATIVE) 03/08/17 16:35 Ur Barbiturates Screen Negative (NEGATIVE) 03/08/17 16:35 Ur Phencyclidine Scrn Negative (NEGATIVE) 03/08/17 16:35 Ur Amphetamines Screen Negative (NEGATIVE) 03/08/17 16:35 U Benzodiazepines Scrn Negative (NEGATIVE) 03/08/17 16:35 U Oth Cocaine Metabols Negative (NEGATIVE) 03/08/17 16:35 U Cannabinoids Screen Negative (NEGATIVE) 03/08/17 16:35 Alcohol, Quantitative < 10 mg/dl (0-10) 03/08/17 16:35 - Hospital Course Hospital Course: 41 yo F with PMHx of GERD, chronic dyspepsia, chronic elevated LFT's, fatty Liver, hypertriglyceridemia and pre-diabetes admitted to hospital because of worsening SOB at rest x 3 days. Originally EKG showed PVCs, the night of admission also showed atrial bigeminy. Cardiology on board- recommended echo. Pt's symptoms resolved. Per conversation with heel blacker, Dr. Newman echo is within normal limits. Pt was discharged stable with instructions to resume home meds, follow up in clinic with Dr. Townsend on 03/19/17. Patient reports many stressors with family, will consider referral to behavioral health specialist pending clinic appt. Discharge Exam - Head Exam Head Exam: ATRAUMATIC, NORMAL INSPECTION - Eye Exam Eye Exam: EOMI, Normal appearance - ENT Exam ENT Exam: Mucous Membranes Moist - Respiratory Exam Respiratory Exam: Clear to PA & Lateral, NORMAL BREATHING PATTERN, UNREMARKABLE - Cardiovascular Exam Cardiovascular Exam: REGULAR RHYTHM, +S1, +S2 - GI/Abdominal Exam GI & Abdominal Exam: Normal Bowel Sounds, Unremarkable - Extremities Exam Extremities exam: full ROM, normal capillary refill, normal inspection - Skin Skin Exam: Dry, Intact, Normal Color, Warm Discharge Plan - Follow Up Plan Condition: STABLE Disposition: HOME/ ROUTINE Instructions: Anxiety (DC) Additional Instructions: -Resume your home medications as prescribed -Follow up with Dr. Townsend at [facility] on 03/19/17 as scheduled Referrals: Fermin Townsend MD [Resident] -
--- NOTE | 2017-03-10 19:36 | CARD ---
APPROVED REPORT EXAM: Two-dimensional and M-mode echocardiogram with Doppler and color Doppler. Other Information Quality : GoodRhythm : APC's INDICATION Abnormal EKG/Arrhythmia Dyspnea 2D DIMENSIONS IVSd0.92 (0.7-1.1cm)LVDd3.95 (3.9-5.9cm) LVOT Diameter1.90 (1.8-2.4cm)PWd0.91 (0.7-1.1cm) IVSs1.21 (0.8-1.2cm)LVDs2.51 (2.5-4.0cm) FS (%) 36.3 %PWs0.96 (0.8-1.2cm) M-Mode DIMENSIONS Left Atrium (MM)3.47 (2.5-4.0cm)IVSd0.62 (0.7-1.1cm) Aortic Root2.68 (2.2-3.7cm)LVDd5.82 (4.0-5.6cm) Aortic Cusp Exc.1.94 (1.5-2.0cm)PWd0.65 (0.7-1.1cm) IVSs1.47 cmFS (%) 42 % LVDs3.35 (2.0-3.8cm)PWs0.91 cm Mitral Valve MV E Qpibvnmf79.7cm/sMV DECEL [id number] A Zicgbrzk31.4cm/s MV HSD85erH/A ratio2.2MVA (PHT)4.76cm2 TDI Lateral E' Peak V15.16cm/sMedial E' Peak V9.53cm/sE/Lateral E'5.2 E/Medial E'8.3 Pulmonary Valve PV Peak Niqajwdl59.5cm/s LEFT VENTRICLE The left ventricle is normal size. There is normal left ventricular wall thickness. The left ventricular function is normal. The left ventricular ejection fraction is 55-60% There is normal LV segmental wall motion. The left ventricular diastolic function is normal. No left ventricle thrombus noted on this study. There is no ventricular septal defect visualized. There is no left ventricular aneurysm. There is no mass noted in the left ventricle. RIGHT VENTRICLE The right ventricle is normal size. There is normal right ventricular wall thickness. The right ventricular systolic function is normal. ATRIA The left atrium size is normal. The right atrium size is normal. The interatrial septum is intact with no evidence for an atrial septal defect. AORTIC VALVE The aortic valve is normal in structure and function. No aortic regurgitation is present. There is no aortic valvular stenosis. There is no aortic valvular vegetation. MITRAL VALVE The mitral valve is normal in structure and function. There is no evidence of mitral valve prolapse. There is no mitral valve stenosis. There is no mitral valve regurgitation noted. TRICUSPID VALVE The tricuspid valve is normal in structure and function. There is no tricuspid valve regurgitation noted. There is no tricuspid valve prolapse or vegetation. There is no tricuspid valve stenosis. PULMONIC VALVE The pulmonary valve is normal in structure and function. There is no pulmonic valvular regurgitation. There is no pulmonic valvular stenosis. GREAT VESSELS The aortic root is normal in size. The ascending aorta is normal in size. The IVC is normal in size and collapses >50% with inspiration. PERICARDIAL EFFUSION The pericardium appears normal. There is no pleural effusion. <Conclusion> Normal Echocardiogram
--- NOTE | 2017-03-11 00:44 | CP.PCM.PN ---
Subjective - Date & Time of Evaluation Date of Evaluation: 03/10/17 Time of Evaluation: 18:00 - Subjective Subjective: LESS DYSPNEA. NO FURTHER ATRIAL ECTOPY Objective - Vital Signs/Intake and Output Vital Signs (last 24 hours): Temp Pulse Resp BP Pulse Ox 98.1 F 80 20 98/66 L 98 03/10/17 15:41 03/10/17 15:41 03/10/17 15:41 03/10/17 15:41 03/10/17 15:41 - Labs Labs: 03/09/17 07:00 03/09/17 07:00 PT 10.3 Seconds (9.8-13.1) 03/08/17 12:00 INR 0.9 (0.9-1.2) 03/08/17 12:00 APTT 27.8 Seconds (25.6-37.1) 03/08/17 12:00 Assessment and Plan (1) SOB (shortness of breath) Status: Resolved (2) Atrial bigeminy Status: Acute
[2017-03-16 01:29] LABS: 18 KD (IGG) BAND Nonreactive; 23 KD (IGG) BAND Nonreactive; 23 KD (IGM) BAND Reactive; 28 KD (IGG) BAND Nonreactive; 30 KD (IGG) BAND Nonreactive; 39 KD (IGG) BAND Nonreactive; 39 KD (IGM) BAND Reactive; 41 KD (IGG) BAND Nonreactive; 41 KD (IGM) BAND Nonreactive; 45 KD (IGG) BAND Nonreactive; 58 KD (IGG) BAND Nonreactive; 66 KD (IGG) BAND Nonreactive; 93 KD (IGG) BAND Nonreactive; LYME DISEASE INTERP (IGG) Negative (Negative)
== END 2017-03-10 18:15 | disposition home or self-care (01) | DRG 309 ==
LOC: H.ER 10:55 → H.ERHOLD 15:46 → H.TEL 19:39
PROVIDERS: ADMIT Family Medicine; ATTEND Family Medicine
DX: I49.3 Ventricular premature depolarization (principal); E87.3 Alkalosis; R00.8 Other abnormalities of heart beat; K76.0 Fatty (change of) liver, not elsewhere classified; J44.9 Chronic obstructive pulmonary disease, unspecified; E78.1 Pure hyperglyceridemia; J30.2 Other seasonal allergic rhinitis; K21.9 Gastro-esophageal reflux disease without esophagitis; R73.03 Prediabetes; Z90.49 Acquired absence of other specified parts of digestive tract

== ENCOUNTER 2017-04-01 08:11 | Emergency (ER) | payer SELFPAY ==
[2017-04-01 08:11] VITALS: BMI 32.1
[2017-04-01 08:22] VITALS: TEMP 98.5; O2SAT 99
--- NOTE | 2017-04-01 09:07 | ED PDOC ---
HPI: CCC, URI, Sore Throat Time Seen by Provider: 04/01/17 08:27 Chief Complaint (Nursing): ENT Problem Chief Complaint (Provider): Sore Throat History Per: Patient History/Exam Limitations: no limitations Onset/Duration Of Symptoms: Days (x2 days) Current Symptoms Are (Timing): Still Present Location Of Pain: Throat Associated Symptoms: denies: Fever Additional Complaint(s): Shae Landin, a 41 year old female, presenting to the ED complaining of throat pain which started yesterday. The patient states that she also has pain when swallowing and a dry cough. Denies fever, difficulty swallowing. Past Medical History Reviewed: Historical Data, Nursing Documentation, Vital Signs Vital Signs: Last Vital Signs Temp 98.5 F 04/01/17 08:19 Pulse 75 04/01/17 08:19 Resp 17 04/01/17 08:19 BP 93/50 L 04/01/17 08:19 Pulse Ox 99 04/01/17 09:09 - Medical History PMH: Gastritis Denies: HIV, Chronic Kidney Disease - Surgical History Surgical History: Appendectomy (w/ peritonitis), (2) - Family History Family History: States: Unknown Family Hx - Immunization History Hx Tetanus Toxoid Vaccination: No Hx Influenza Vaccination: No Hx Pneumococcal Vaccination: No - Home Medications Home Medications: Ambulatory Orders Medication Instructions Recorded Omeprazole 40 mg PO DAILY 03/08/17 Guaifenesin/Dextromethorphan 10 ml PO Q4H PRN #1 bottle 04/01/17 [Robitussin Cough-Chest Dm Liq] Naproxen [Naprosyn] 500 mg PO BID PRN #15 tablet 04/01/17 - Allergies Allergies/Adverse Reactions: Allergies Allergy/AdvReac Type Severity Reaction Status Date / Time No Known Allergies Allergy Verified 04/01/17 08:29 Review of Systems Constitutional: Negative for: Fever ENT: Positive for: Throat Pain Respiratory: Positive for: Cough (Dry cough) Physical Exam - Reviewed Nursing Documentation Reviewed: Yes Vital Signs Reviewed: Yes - Physical Exam Appears: Positive for: Non-toxic, No Acute Distress Head Exam: Positive for: ATRAUMATIC, NORMAL INSPECTION, NORMOCEPHALIC Skin: Positive for: Normal Color, Warm, Dry Eye Exam: Positive for: Normal appearance, EOMI, PERRL ENT: Positive for: Normal ENT Inspection, Pharynx Is (Pharynx is clear). Negative for: Pharyngeal Erythema, Tonsillar Exudate, Tonsillar Swelling Cardiovascular/Chest: Positive for: Regular Rate, Rhythm, Chest Non Tender. Negative for: Tachycardia Respiratory: Positive for: Normal Breath Sounds. Negative for: Rales, Rhonchi, Wheezing, Respiratory Distress Neurologic/Psych: Positive for: Alert, Oriented, Gait - ECG O2 Sat by Pulse Oximetry: 99 (RA) Pulse Ox Interpretation: Normal Medical Decision Making Medical Decision Makin Initial Impression: 41 year old female presenting with throat pain Initial Plan: * Upreg * Motrin Tab 600mg PO * Rapid Strep Group * Reevaluation Old records reviewed, pt with baseline lower BP. Scribe Attestation Documented by Elena Rodríguez acting as a scribe for Niurka Wu MD. Provider Attestation All medical record entries made by the Scribe were at my direction and personally dictated by me. I have reviewed the chart and agree that the record accurately reflects my personal performance of the history, physical exam, medical decision making, and the department course for this patient. I have also personally directed, reviewed, and agree with the discharge instructions and disposition. Disposition - Clinical Impression Clinical Impression: URI (upper respiratory infection) - Disposition Referrals: [facility] [Outside] Disposition: Routine/Home Disposition Time: 09:57 Condition: STABLE Prescriptions: Guaifenesin/Dextromethorphan [Robitussin Cough-Chest Dm Liq] 10 ml PO Q4H PRN # 1 bottle PRN Reason: Cough Naproxen [Naprosyn] 500 mg PO BID PRN #15 tablet PRN Reason: Pain, Moderate (4-7) Instructions: Upper Respiratory Infection (ED) Forms: [employer] (Nepalese) Print Language: FAROESE
[2017-04-01 10:38] VITALS: BP 110/78; PULSE 82; RESP 16
== END 2017-04-01 10:39 | disposition home or self-care (01) ==
LOC: H.ER 08:11
DX: J06.9 Acute upper respiratory infection, unspecified (principal)

== ENCOUNTER 2017-05-07 21:49 | Emergency (ER) | payer SELFPAY ==
[2017-05-07 21:49] VITALS: BMI 32.1
[2017-05-07 22:00] VITALS: BP 103/53; PULSE 74; RESP 18; TEMP 99.1; O2SAT 100
[2017-05-07] MEDS ORDERED: Apap-Butalbital-Caffeine 325-50-40mg Tab PO STA (22:21)
--- NOTE | 2017-05-07 22:32 | ED PDOC ---
HPI: Headache Time Seen by Provider: 05/07/17 22:03 Chief Complaint (Nursing): Headache Chief Complaint (Provider): headache History Per: Patient History/Exam Limitations: no limitations Additional Complaint(s): 41yo F in ED for eval of [place] noted x 2days without acute injury isolated to the left occipital area traveling into SCM post side. Pt denies nausea vomiting fever chills neck pain diarrhea no vision changes or vision loss - Risk Factors SAH Risk Factors: Nest Degree Relative(s) W/SAH, Polycystic Kidney Disease, Marfan's Syndrome, Juan Pablo-Danlos Syndrome, Neurofibromatos, Type I, Sudden Onset Of Pain , Worst Headache Of Life Past Medical History Reviewed: Historical Data, Nursing Documentation, Vital Signs Vital Signs: Last Vital Signs Temp 99.1 F 05/07/17 21:55 Pulse 74 05/07/17 21:55 Resp 18 05/07/17 21:55 BP 103/53 L 05/07/17 21:55 Pulse Ox 100 05/07/17 21:55 - Medical History PMH: Gastritis Denies: HIV, Chronic Kidney Disease - Surgical History Surgical History: Appendectomy (w/ peritonitis), (2) - Family History Family History: States: Unknown Family Hx - Immunization History Hx Tetanus Toxoid Vaccination: No Hx Influenza Vaccination: No Hx Pneumococcal Vaccination: No - Home Medications Home Medications: Ambulatory Orders Medication Instructions Recorded Omeprazole 40 mg PO DAILY 03/08/17 Guaifenesin/Dextromethorphan 10 ml PO Q4H PRN #1 bottle 04/01/17 [Robitussin Cough-Chest Dm Liq] Naproxen [Naprosyn] 500 mg PO BID PRN #15 tablet 04/01/17 Acetaminophen/Butalbital/Caf 1 tab PO Q6 #12 tab 05/07/17 [Fioricet] - Allergies Allergies/Adverse Reactions: Allergies Allergy/AdvReac Type Severity Reaction Status Date / Time No Known Allergies Allergy Verified 04/01/17 08:29 Review of Systems ROS Statement: Except As Marked, All Systems Reviewed And Found Negative Constitutional: Negative for: Fever, Chills Gastrointestinal: Negative for: Nausea, Vomiting, Abdominal Pain Physical Exam - Reviewed Nursing Documentation Reviewed: Yes Vital Signs Reviewed: Yes - Physical Exam Appears: Positive for: Well, Non-toxic, No Acute Distress Head Exam: Positive for: ATRAUMATIC, NORMAL INSPECTION, NORMOCEPHALIC Skin: Positive for: Normal Color, Warm, DRY Eye Exam: Positive for: EOMI, Normal appearance, PERRL Cardiovascular/Chest: Positive for: Regular Rate, Rhythm Respiratory: Positive for: CNT, Normal Breath Sounds Back: Positive for: Normal Inspection Extremity: Positive for: Normal ROM Neurologic/Psych: Positive for: Alert, Oriented - ECG O2 Sat by Pulse Oximetry: 100 - Progress ED Course And Treament: Pt given fiorocet in ER and re-eval Medical Decision Making Medical Decision Making: pt re-evaluate and improved pt will be giizabela jaquezocet PO and advised to f.u with neurology stable VS and ready for d.c. Disposition - Clinical Impression Clinical Impression: Migraine - Patient ED Disposition Is Patient to be Admitted: No Counseled Patient/Family Regarding: Diagnosis, Need For Followup, Rx Given - Disposition Referrals: [facility] [Outside] Disposition: Routine/Home Disposition Time: 22:34 Condition: STABLE Prescriptions: Acetaminophen/Butalbital/Caf [Fioricet] 1 tab PO Q6 #12 tab Instructions: Migraine Headache (ED) Print Language: BURMESE
== END 2017-05-07 23:02 | disposition home or self-care (01) ==
LOC: H.ER 21:49
DX: G43.909 Migraine, unspecified, not intractable, without status migrainosus (principal)

== ENCOUNTER 2017-11-15 18:58 | Emergency (ER) | payer SELFPAY ==
[2017-11-15 18:58] VITALS: BMI 32.1
[2017-11-15 19:08] VITALS: BP 105/52; PULSE 70; RESP 18; TEMP 98.4; O2SAT 99
--- NOTE | 2017-11-15 21:10 | ED PDOC ---
HPI: General Adult Time Seen by Provider: 11/15/17 19:09 Chief Complaint (Nursing): Lower Extremity Problem/Injury Chief Complaint (Provider): "inflammation suprapubic area"; burning on urination History/Exam Limitations: no limitations Onset/Duration Of Symptoms: Days (3) Have you had recent travel within the past 21 days to any of the following countries: [place], [place], [place] or [place]?: No Current Symptoms Are (Timing): Still Present () Past Medical History Reviewed: Historical Data, Nursing Documentation, Vital Signs Vital Signs: Last Vital Signs Temp 98.4 F 11/15/17 19:05 Pulse 70 11/15/17 19:05 Resp 18 11/15/17 19:05 BP 105/52 L 11/15/17 19:05 Pulse Ox 99 11/15/17 21:10 - Medical History PMH: Gastritis Denies: HIV, Chronic Kidney Disease - Surgical History Surgical History: Appendectomy (w/ peritonitis), (2) - Family History Family History: States: Unknown Family Hx - Immunization History Hx Tetanus Toxoid Vaccination: No Hx Influenza Vaccination: No Hx Pneumococcal Vaccination: No - Home Medications Home Medications: Ambulatory Orders Medication Instructions Recorded Omeprazole 40 mg PO DAILY 03/08/17 Guaifenesin/Dextromethorphan 10 ml PO Q4H PRN #1 bottle 04/01/17 [Robitussin Cough-Chest Dm Liq] Naproxen [Naprosyn] 500 mg PO BID PRN #15 tablet 04/01/17 Acetaminophen/Butalbital/Caf 1 tab PO Q6 #12 tab 05/07/17 [Fioricet] valACYclovir [Valtrex] 1 gm PO BID #14 tab 11/15/17 - Allergies Allergies/Adverse Reactions: Allergies Allergy/AdvReac Type Severity Reaction Status Date / Time No Known Allergies Allergy Verified 04/01/17 08:29 Review of Systems ROS Statement: Except As Marked, All Systems Reviewed And Found Negative Constitutional: Negative for: Fever, Chills Genitourinary Female: Positive for: Dysuria. Negative for: Vaginal Bleeding, Pelvic Pain Musculoskeletal: Positive for: Arm Pain Physical Exam - Reviewed Nursing Documentation Reviewed: Yes Vital Signs Reviewed: Yes - Physical Exam Appears: Positive for: Well, Non-toxic, No Acute Distress Head Exam: Positive for: ATRAUMATIC, NORMAL INSPECTION, NORMOCEPHALIC Skin: Positive for: Normal Color, Warm, DRY Eye Exam: Positive for: Normal appearance ENT: Positive for: Normal ENT Inspection Neck: Positive for: Normal, Painless ROM Cardiovascular/Chest: Positive for: Regular Rate, Rhythm Respiratory: Positive for: Normal Breath Sounds. Negative for: Accessory Muscle Use, Respiratory Distress Pelvic Exam: Negative for: External Exam Normal ((+) 3 swallow ulcers on the labia minora, painful ) Back: Positive for: Normal Inspection, Other (Sensation in bilteral legs intact ) Extremity: Positive for: Normal ROM Neurologic/Psych: Positive for: Alert, Oriented - ECG O2 Sat by Pulse Oximetry: 99 Disposition - Clinical Impression Clinical Impression: Herpes - Patient ED Disposition Is Patient to be Admitted: No Counseled Patient/Family Regarding: Diagnosis, Need For Followup, Rx Given - [facility] Disposition: Routine/Home Disposition Time: 21:09 Condition: STABLE Prescriptions: valACYclovir [Valtrex] 1 gm PO BID #14 tab Instructions: Genital Herpes (DC), Mouth Sores (DC) Forms: [facility] (Sierra Leonean) Print Language: GUINEAN
== END 2017-11-15 21:19 | disposition home or self-care (01) ==
LOC: H.ER 18:58
DX: B00.9 Herpesviral infection, unspecified (principal)

== ENCOUNTER 2017-11-19 09:31 | Emergency (ER) | payer SELFPAY ==
[2017-11-19 09:43] VITALS: BMI 25.7
--- NOTE | 2017-11-19 10:56 | ED PDOC ---
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 Tinnitus started at 5am today, followed by a headache. The headache started in the front then moved all over. 03/20. Associated with mild photophobia as well as phonophobia. Approx 1 hour later, she developed burning epigastric pain that lead to 3 episodes of NBNB emesis. Pt did not take any medications. Denies any numbness/tingling/weakness. No vision changes. No sick contacts, 1st time of such symptoms. No hx of ETOH or drug use. Past Medical History Reviewed: Historical Data, Nursing Documentation, Vital Signs Vital Signs: Last Vital Signs Temp 97.8 F 11/19/17 09:53 Pulse 66 11/19/17 09:53 Resp 18 11/19/17 09:53 BP 96/50 L 11/19/17 09:53 Pulse Ox 98 11/19/17 09:53 - Medical History PMH: Gastritis Denies: HIV, Chronic Kidney Disease - Surgical History Surgical History: Appendectomy (w/ peritonitis), (2) - Family History Family History: States: Unknown Family Hx - Immunization History Hx Tetanus Toxoid Vaccination: No Hx Influenza Vaccination: No Hx Pneumococcal Vaccination: No - Home Medications Home Medications: Ambulatory Orders Medication Instructions Recorded Omeprazole 40 mg PO DAILY 03/08/17 Guaifenesin/Dextromethorphan 10 ml PO Q4H PRN #1 bottle 04/01/17 [Robitussin Cough-Chest Dm Liq] Naproxen [Naprosyn] 500 mg PO BID PRN #15 tablet 04/01/17 Acetaminophen/Butalbital/Caf 1 tab PO Q6 #12 tab 05/07/17 [Fioricet] valACYclovir [Valtrex] 1 gm PO BID #14 tab 11/15/17 Naproxen [Naprosyn] 500 mg PO BID PRN #15 tablet 11/19/17 Ondansetron ODT [Zofran ODT] 4 mg PO Q8H PRN #20 odt 11/19/17 - Allergies Allergies/Adverse Reactions: Allergies Allergy/AdvReac Type Severity Reaction Status Date / Time No Known Allergies Allergy Verified 04/01/17 08:29 Review of Systems Constitutional: Negative for: Fever, Chills, Sweats, Weakness, Malaise, Weight loss Eyes: Negative for: Vision Change ENT: Positive for: Other (tinnitus ). Negative for: Nose Pain, Nose Discharge, Nose Congestion Cardiovascular: Negative for: Chest Pain, Palpitations, Orthopnea, Paroxysmal Noc. Dyspnea Respiratory: Negative for: Cough, Shortness of Breath, Hemoptysis Gastrointestinal: Positive for: Vomiting (x3 NBNB), Abdominal Pain (epigastric, burning ). Negative for: Diarrhea, Melena, Hematochezia, Hematemesis Genitourinary Female: Negative for: Dysuria, Frequency, Incontinence Skin: Negative for: Rash Neurological: Positive for: Headache, Dizziness. Negative for: Weakness, Numbness, Incoordination, Change in Speech, Confusion, Altered Mental Status Physical Exam - Reviewed Nursing Documentation Reviewed: Yes Vital Signs Reviewed: Yes - Physical Exam Appears: Positive for: Non-toxic, No Acute Distress Head Exam: Positive for: ATRAUMATIC, NORMAL INSPECTION, NORMOCEPHALIC Skin: Positive for: Normal Color, Warm, Dry Eye Exam: Positive for: EOMI, PERRL. Negative for: Nystagmus, Conjunctival injection, Scleral icterus ENT: Positive for: Normal ENT Inspection Neck: Positive for: Normal, Painless ROM, Supple. Negative for: Decreased ROM Cardiovascular/Chest: Positive for: Regular Rate, Rhythm, Chest Non Tender. Negative for: Edema, Gallop, JVD, Murmur, Bradycardia, Tachycardia, Irregularly Irregular Respiratory: Positive for: Normal Breath Sounds. Negative for: Crackles, Rales , Rhonchi, Wheezing Pulses-Radial (L): 2+ Pulses-Radial (R): 2+ Gastrointestinal/Abdominal: Positive for: Bowel Sounds (normal ), Soft, Tenderness (epigastric ). Negative for: Organomegaly, Mass, Distended, Guarding , Rebound Extremity: Positive for: Capillary Refill (<2s). 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 Negative for: Motor/Sensory Deficits, Facial Droop - Laboratory Results Result Diagrams: 11/19/17 11:02 11/19/17 10:52 - ECG O2 Sat by Pulse Oximetry: 98 - Progress ED Course And Treament: migraine/gastritis/vertigo/medication adverse effect cbc cmp lipase UA zofran 8mg ODT Disposition - Clinical Impression Clinical Impression: Headache - Patient ED Disposition Is Patient to be Admitted: No - Disposition Referrals: [facility] [Outside] [facility] [Outside] Disposition: Routine/Home Disposition Time: 11:04 Condition: IMPROVED Prescriptions: Naproxen [Naprosyn] 500 mg PO BID PRN #15 tablet PRN Reason: Pain, Moderate (4-7) Ondansetron ODT [Zofran ODT] 4 mg PO Q8H PRN #20 odt PRN Reason: Nausea/Vomiting Instructions: Headache, Adult (DC) Forms: [facility] (Indonesian) Print Language: AZERBAIJANI
[2017-11-19] MEDS ORDERED: Sodium Chloride 0.9% 1,000 ML IV SCH (11:15)
[2017-11-19 11:32] LABS: HEMOGLOBIN 11.6 g/dL (12.0-16.0); MEAN CELL VOLUME 83.5 fl (81.0-99.0); MEAN CORPUSCULAR HEMOGLOBIN 27.4 pg (27.0-31.0); MEAN CORPUSCULAR HGB CONC 32.8 g/dL (33.0-37.0); RBC 4.25 Mil/uL (3.80-5.20); RED CELL DISTRIBUTION WIDTH 14.2 % (11.5-14.5); WHITE BLOOD COUNT 5.1 K/uL (4.8-10.8)
[2017-11-19 11:43] LABS: SQUAMOUS EPITHIAL 13 /hpf (0-5); URINE BACTERIA RARE (<OCC); URINE BILIRUBIN NEGATIVE (NEGATIVE); URINE BLOOD NEGATIVE (NEGATIVE); URINE CLARITY CLOUDY (Clear); URINE COLOR YELLOW (YELLOW); URINE GLUCOSE (UA) NEG (Normal); URINE LEUKOCYTE ESTERASE NEG Leu/uL (Negative); URINE PROTEIN NEGATIVE (NEGATIVE); URINE UROBILINOGEN 0.2-1.0 mg/dL (0.2-1.0)
[2017-11-19 12:24] LABS: ALBUMIN 4.1 g/dL (3.5-5.0); ALT/SGPT 97 U/L (9-52); AST/SGOT 58 U/L (14-36); BLOOD UREA NITROGEN 10 mg/dl (7-17); CALCIUM 9.2 mg/dL (8.4-10.2); GFR AFRICAN-AMERICAN > 60; GFR NON-AFRICAN AMERICAN > 60; LIPASE 117 U/L (23-300)
--- NOTE | 2017-11-19 15:34 | CT ---
PROCEDURE: CT HEAD WITHOUT CONTRAST. HISTORY: [place] COMPARISON: 07/23/2016 TECHNIQUE: Axial computed tomography images were obtained through the head/brain without intravenous contrast. Radiation dose: Total exam DLP = 720 mGy-cm. This CT exam was performed using one or more of the following dose reduction techniques: Automated exposure control, adjustment of the mA and/or kV according to patient size, and/or use of iterative reconstruction technique. FINDINGS: HEMORRHAGE: No intracranial hemorrhage. BRAIN: No mass effect or edema. No atrophy or chronic microvascular ischemic changes. VENTRICLES: Unremarkable. No hydrocephalus. CALVARIUM: Unremarkable. PARANASAL SINUSES: Unremarkable as visualized. No significant inflammatory changes. MASTOID AIR CELLS: Unremarkable as visualized. No inflammatory changes. OTHER FINDINGS: None. IMPRESSION: Normal CT of the Head. No interval pathology noted
[2017-11-19 16:17] VITALS: BP 112/64; PULSE 68; RESP 14; TEMP 98.2
[2017-11-20 11:04] VITALS: O2SAT 98
== END 2017-11-19 16:16 | disposition home or self-care (01) ==
LOC: H.ER 09:31
DX: R51 Headache (principal); R42 Dizziness and giddiness

== ENCOUNTER 2017-11-21 16:33 | Emergency (ER) | payer SELFPAY ==
[2017-11-21 16:33] VITALS: BMI 25.7
[2017-11-21 16:36] VITALS: TEMP 98.4
[2017-11-21] MEDS ORDERED: Sodium Chloride 0.9% 1,000 ML IV STA (17:06)
--- NOTE | 2017-11-21 17:42 | ED PDOC ---
HPI: Headache Time Seen by Provider: 11/21/17 16:44 Chief Complaint (Nursing): Dizziness/Lightheaded Chief Complaint (Provider): Headache History Per: Patient History/Exam Limitations: no limitations Onset/Duration Of Symptoms: Days (3) Current Symptoms Are (Timing): Still Present Quality: "Pain" Preceeding Symptoms: denies: Visual Disturbances Associated Symptoms: Nausea, Vomiting, Extremity Weakness (right upper). denies : Photophobia, Blurred Vision Additional History Per: Patient Additional Complaint(s): 41yo female with no known past medical history, presents to ED with complaints of persistent posterior headache, nausea, dizziness for the past 3 days. Patient states she was seen in this ER on 11/19/17 for similar symptoms and was prescribed Zofran. Patient was also seen in this ER on 11/15/17, was diagnosed with Herpes and given Valcyclovir. Patient has been taking both these medications and states her symptoms have not resolved. She reports the dizziness and headache is only with movement; also reports right arm weakness. She denies any head injury, vision changes, photophobia, numbness, tingling, chest pain, shortness of breath, or abdominal pin. She has no other medical complaints. No neck pain. PCP: Saniya Brown NIHSS Stroke Scale - Date/Time Evaluation Performed Date Performed: 11/21/17 Time Performed: 16:40 When Was NIHSS Performed: Baseline - How Severe is the Stroke Level of Consciousness: 0=Alert LOC to Questions: 0=Both comments correct LOC to commands: 0=Obeys both correctly Best Gaze: 0=Normal Visual: 0=No visual loss Facial: 0=Normal Motor Arm - Left: 0=No drift Motor Arm - Right: 0=No drift Motor Leg - Left: 0=No drift Motor Leg - Right: 0=No drift Limb Ataxia: 0=Absent Sensory: 0=Normal Best Language: 0=No aphasia Dysarthia: 0=Normal articulation Extinction & Inattention (Neglect): 0=Normal, no object Score: 0 Severity Of Stroke: 0 = No Stroke Past Medical History Reviewed: Historical Data, Nursing Documentation, Vital Signs Vital Signs: Last Vital Signs Temp 98.4 F 11/21/17 16:34 Pulse 73 11/21/17 16:34 Resp 16 11/21/17 16:34 BP 96/60 L 11/21/17 16:34 Pulse Ox 97 11/21/17 16:34 - Medical History PMH: Gastritis Denies: HIV, Chronic Kidney Disease - Surgical History Surgical History: Appendectomy (w/ peritonitis), (2) - Family History Family History: States: Unknown Family Hx - Living Arrangements Living Arrangements: With Family - Immunization History Hx Tetanus Toxoid Vaccination: No Hx Influenza Vaccination: No Hx Pneumococcal Vaccination: No - Home Medications Home Medications: Ambulatory Orders Medication Instructions Recorded Omeprazole 40 mg PO DAILY 03/08/17 Guaifenesin/Dextromethorphan 10 ml PO Q4H PRN #1 bottle 04/01/17 [Robitussin Cough-Chest Dm Liq] Naproxen [Naprosyn] 500 mg PO BID PRN #15 tablet 04/01/17 Acetaminophen/Butalbital/Caf 1 tab PO Q6 #12 tab 05/07/17 [Fioricet] valACYclovir [Valtrex] 1 gm PO BID #14 tab 11/15/17 Naproxen [Naprosyn] 500 mg PO BID PRN #15 tablet 11/19/17 Ondansetron ODT [Zofran ODT] 4 mg PO Q8H PRN #20 odt 11/19/17 Meclizine [Meclizine*] 25 mg PO Q12 PRN #10 tab 11/21/17 Metoclopramide [Reglan] 5 mg PO DAILY PRN 5 Days tab 11/21/17 - Allergies Allergies/Adverse Reactions: Allergies Allergy/AdvReac Type Severity Reaction Status Date / Time No Known Allergies Allergy Verified 11/21/17 16:35 Review of Systems ROS Statement: Except As Marked, All Systems Reviewed And Found Negative Constitutional: Negative for: Fever, Chills Eyes: Negative for: Vision Change Cardiovascular: Negative for: Chest Pain Respiratory: Negative for: Shortness of Breath Gastrointestinal: Positive for: Nausea, Vomiting. Negative for: Abdominal Pain Neurological: Positive for: Headache, Dizziness Physical Exam - Reviewed Nursing Documentation Reviewed: Yes Vital Signs Reviewed: Yes - Physical Exam Appears: Positive for: Non-toxic, No Acute Distress Head Exam: Positive for: ATRAUMATIC Skin: Positive for: Normal Color, Warm, Dry Eye Exam: Positive for: Normal appearance, EOMI, PERRL ENT: Positive for: Normal ENT Inspection, TM Is/Are (clear bilaterally), Hearing Is (normal). Negative for: Nasal Congestion, Pharyngeal Erythema Neck: Positive for: Normal, Supple Cardiovascular/Chest: Positive for: Regular Rate, Rhythm Respiratory: Positive for: Normal Breath Sounds. Negative for: Wheezing Gastrointestinal/Abdominal: Positive for: Normal Exam, Soft. Negative for: Tenderness Back: Positive for: Normal Inspection. Negative for: L CVA Tenderness, R CVA Tenderness Extremity: Positive for: Normal ROM. 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 Negative for: Motor/Sensory Deficits, Aphasia, Facial Droop - Laboratory Results Result Diagrams: 11/21/17 17:45 11/21/17 17:45 Interpretation Of Abn Labs: no acute - ECG ECG: Positive for: Interpreted By Me, Viewed By Me ECG Rhythm: Positive for: Normal QRS, Normal ST Segment, Sinus Rhythm O2 Sat by Pulse Oximetry: 97 (RA) Pulse Ox Interpretation: Normal - Progress ED Course And Treament: 193: Stable. AAOx3. No dizziness. No pain. Fu with pcp. No weakness of arm. Strength was 5/5 at all times. Ambulated with no issues. Medical Decision Making Medical Decision Making: Impression: Headache, dizziness x 3 days Plan: -- Labs -- IV fluids -- Meclizine 25mg PO -- Reglan 10mg PO Scribe Attestation: Documented by Brittani Sierra acting as a scribe for Babar Garcia MD Provider Attestation: All medical record entries made by the Scribe were at my direction and personally dictated by me. I have reviewed the chart and agree that the record accurately reflects my personal performance of the history, physical exam, medical decision making, and the department course for this patient. I have also personally directed, reviewed, and agree with the discharge instructions and disposition. Disposition - Clinical Impression Clinical Impression: Dizziness - Patient ED Disposition Is Patient to be Admitted: No Counseled Patient/Family Regarding: Studies Performed, Diagnosis, Need For Followup, Rx Given - Disposition Referrals: [facility] [Outside] - 11/24/17 Disposition: Routine/Home Disposition Time: 19:43 Condition: FAIR Additional Instructions: Return if not better in 3 days. Prescriptions: Meclizine [Meclizine*] 25 mg PO Q12 PRN #10 tab PRN Reason: Dizziness Metoclopramide [Reglan] 5 mg PO DAILY PRN 5 Days tab PRN Reason: Headache Instructions: Vertigo (a Type of Dizziness) (DC) Forms: [facility] (Japanese) Print Language: BELIZEAN rTPA Inclusion/Exclusion - Refusal of Treatment Patient Refused Treatment: No - Inclusion Criteria for Altepase Patient is 18 years or Older: Yes Clinical DX Ischemic Stroke Cause Neurological Deficit: No Time of Onset Established Less Than 270 Mins Before TX Begin: No Risk/Benefit Discussed With Patient/Family Member Present: No
[2017-11-21 18:03] LABS: BASO # 0.1 K/uL (0.0-0.2); BASO % 0.6 % (0.0-2.0); EOS # 0.2 K/uL (0.0-0.7); EOS % 1.9 % (0.0-4.0); HEMOGLOBIN 12.1 g/dL (12.0-16.0); LYMPH # 2.2 K/uL (1.0-4.3); LYMPH % 26.9 % (20.0-40.0); MEAN CELL VOLUME 83.4 fl (81.0-99.0); MEAN CORPUSCULAR HEMOGLOBIN 27.2 pg (27.0-31.0); MEAN CORPUSCULAR HGB CONC 32.6 g/dL (33.0-37.0); MEAN PLATELET VOLUME 7.6 fl (7.2-11.7); MONO # 0.5 K/uL (0.0-0.8); MONO % 6.3 % (0.0-10.0); NEUT # 5.3 K/uL (1.8-7.0); NEUT % 64.3 % (50.0-75.0); NRBC % 0.1 % (0.0-0.0); RBC 4.43 Mil/uL (3.80-5.20); RED CELL DISTRIBUTION WIDTH 14.9 % (11.5-14.5); WHITE BLOOD COUNT 8.3 K/uL (4.8-10.8)
[2017-11-21 18:05] LABS: PARTIAL THROMBOPLASTIN TIME 30.1 Seconds (25.6-37.1)
[2017-11-21 18:10] LABS: ALB/GLOB RATIO 1.1 (1.0-2.1); ALBUMIN 4.2 g/dL (3.5-5.0); ALT/SGPT 96 U/L (9-52); AST/SGOT 60 U/L (14-36); BLOOD UREA NITROGEN 9 mg/dl (7-17); CALCIUM 8.8 mg/dL (8.4-10.2); GFR AFRICAN-AMERICAN > 60; GFR NON-AFRICAN AMERICAN > 60
[2017-11-21 20:26] VITALS: BP 95/65; PULSE 71; RESP 18; O2SAT 96
--- NOTE | 2017-11-22 08:40 | CARD ---
APPROVED REPORT EKG Measurement Heart [id number] <Conclusion> Normal sinus rhythm Normal ECG
== END 2017-11-21 20:15 | disposition home or self-care (01) ==
LOC: H.ER 16:33
DX: R42 Dizziness and giddiness (principal); R51 Headache
CPT/HCPCS: 80053; 81025; 84484; 85025; 85610; 85730; 93005; 99285; J7040

== ENCOUNTER 2018-04-07 09:20 | Day surgery (SDC) | payer SELFPAY ==
[2018-04-07] MEDS ORDERED: Lactated Ringer's 500 ML IV ONE (10:04)
[2018-04-07] MEDS ORDERED: Midazolam 2 MG/2 ML VIAL ONE (12:49)
[2018-04-07] MEDS ORDERED: Propofol 10 mg/ml Inj (20 ML) ONE (12:49)
[2018-04-07 13:21] VITALS: TEMP 97
[2018-04-07 13:26] VITALS: BP 90/60; PULSE 57; RESP 14; O2SAT 99
== END 2018-04-07 14:08 | disposition home or self-care (01) ==
LOC: H.ENDO 09:20
PROVIDERS: ATTEND Internal Medicine Gastroenterology
DX: K31.89 Other diseases of stomach and duodenum (principal); K29.50 Unspecified chronic gastritis without bleeding; B96.81 Helicobacter pylori [H. pylori] as the cause of diseases classified elsewhere; R10.13 Epigastric pain
CPT/HCPCS: 43239; 88305; J2001; J2250; J2704; J3010; J7120

== ENCOUNTER 2018-11-03 10:08 | Emergency (ER) | payer OTHER, SELFPAY ==
[2018-11-03 10:11] VITALS: BMI 27.0
[2018-11-03 10:13] VITALS: TEMP 98.4
[2018-11-03] MEDS ORDERED: Naproxen 500 MG TAB PO STA (10:43)
--- NOTE | 2018-11-03 10:44 | ED PDOC ---
Upper Extremity Pain/Injury Time Seen by Provider: 11/03/18 10:30 Chief Complaint (Nursing): Upper Extremity Problem/Injury Chief Complaint (Provider): LEft shoulder pain History Per: Patient History/Exam Limitations: no limitations Onset/Duration Of Symptoms: Persistent Current Symptoms Are (Timing): Still Present Quality: "Pain" Additional History Per: Patient Additional Complaint(s): 42yo female, comes to ER reporting left shoulder pain x 1 month. Patient states pain radiates towards her neck; no reports of injury, weakness, numbness, or paresthesia. No additional medical complaints. PMD: None Past Medical History Reviewed: Historical Data, Nursing Documentation, Vital Signs Vital Signs: Last Vital Signs Temp 98.4 F 11/03/18 10:11 Pulse 69 11/03/18 10:11 Resp 18 11/03/18 10:11 BP 100/64 11/03/18 10:11 Pulse Ox 99 11/03/18 10:11 - Medical History PMH: Gastritis Denies: HIV, Chronic Kidney Disease - Surgical History Surgical History: Appendectomy, (2) - Family History Family History: States: Unknown Family Hx - Immunization History Hx Tetanus Toxoid Vaccination: No Hx Influenza Vaccination: No Hx Pneumococcal Vaccination: No - Home Medications Home Medications: Ambulatory Orders Medication Instructions Recorded Cyclobenzaprine [Cyclobenzaprine 10 mg PO TID #12 tab 11/03/18 HCl] Naproxen [Naprosyn] 500 mg PO Q12H #20 tab 11/03/18 - Allergies Allergies/Adverse Reactions: Allergies Allergy/AdvReac Type Severity Reaction Status Date / Time No Known Allergies Allergy Verified 11/21/17 16:35 Review of Systems ROS Statement: Except As Marked, All Systems Reviewed And Found Negative Musculoskeletal: Positive for: Shoulder Pain (left) Neurological: Negative for: Weakness, Numbness Physical Exam - Reviewed Nursing Documentation Reviewed: Yes Vital Signs Reviewed: Yes - Physical Exam Appears: Positive for: Non-toxic, No Acute Distress Head Exam: Positive for: ATRAUMATIC, NORMAL INSPECTION, NORMOCEPHALIC Skin: Positive for: Normal Color Eye Exam: Positive for: Normal appearance Neck: Positive for: Normal, Painless ROM (no c-spine tenderness), Supple Cardiovascular/Chest: Positive for: Regular Rate, Rhythm. Negative for: Tachycardia Respiratory: Positive for: Normal Breath Sounds. Negative for: Respiratory Distress Extremity: Positive for: Normal ROM (FROM left shoulder), Other (left trapezius muscle spasm). Negative for: Deformity, Swelling Neurological/Psych: Positive for: Awake, Alert, Oriented (x 3). Negative for: Motor/Sensory Deficits - ECG O2 Sat by Pulse Oximetry: 99 (RA) Pulse Ox Interpretation: Normal Medical Decision Making Medical Decision Makinyo with left shoulder pain Plan: -- Naproxen 500mg PO Scribe Attestation: Documented by Brittani Sierra, acting as a scribe for Baldomero White MD Provider Scribe Attestation: All medical record entries made by the Scribe were at my direction and personally dictated by me. I have reviewed the chart and agree that the record accurately reflects my personal performance of the history, physical exam, medical decision making, and the department course for this patient. I have also personally directed, reviewed, and agree with the discharge instructions and disposition. Disposition - Clinical Impression Clinical Impression: Shoulder pain - Patient ED Disposition Is Patient to be Admitted: No Counseled Patient/Family Regarding: Diagnosis, Need For Followup, Rx Given - Disposition Referrals: [facility] [Outside] Disposition: Routine/Home Disposition Time: 11:10 Condition: FAIR Prescriptions: Cyclobenzaprine [Cyclobenzaprine HCl] 10 mg PO TID #12 tab Naproxen [Naprosyn] 500 mg PO Q12H #20 tab Instructions: Radiculopathy (DC), Shoulder Pain (DC) Forms: [facility] [facility] (South Korean) Print Language: ERITREAN
[2018-11-03] MEDS ORDERED: Naproxen 500 MG TAB PO ONE (10:49)
[2018-11-03 11:08] VITALS: BP 100/62; PULSE 67; RESP 16
[2018-11-03 11:10] VITALS: O2SAT 99
== END 2018-11-03 11:06 | disposition home or self-care (01) ==
LOC: H.ER 10:08
DX: M25.512 Pain in left shoulder (principal)